=== PATIENT | female | born 1955 | race Caucasian/White ===

== ENCOUNTER 2017-12-16 10:58 | Emergency (ER) | payer MEDICARE, MEDICAID ==
[2017-12-16 11:50] VITALS: BP 138/74
--- NOTE | 2017-12-16 12:28 | RAD ---
Indication: Low back pain post fall 2 weeks ago. Difficulty walking. Comparison: No relevant prior exams available on the [facility] PACS for comparison. Technique: AP, lateral, and oblique views lumbar sacral spine. Report: Mild straightening and slight LEFT convex curve without spondylolisthesis at any level. Negative for fracture or spondylolysis. Advanced degenerative spondylosis with severe disc space narrowing at L3-L4 through L5-S1. Facet joint osteoarthritis is severe at L4-L5 and L5-S1. Unremarkable paraspinal soft tissue contours. Atherosclerotic calcification of the abdominal aorta. IMPRESSION: #. Negative for fracture or traumatic malalignment. #. Advanced degenerative spondylosis and facet joint osteoarthritis.
--- NOTE | 2017-12-16 12:46 | UC ---
Back Pain HPI - HPI Summary HPI Summary: lower back pain x 2 weeks s/p fall 2 weeks ago , has been having lower back pain since the fall , no radiation of the pain has been having frequent fall since , has difficulty walking , very unsteady on her feet , cannot control her gait , significant lower ext. weakness left more than right , has been using the walker no numbness of lower ext, no urinary sx - History of Current Complaint Chief Complaint: UCLowerExtremity Stated Complaint: SP FALL-LOWER BACK PAIN Time Seen by Provider: 12/16/17 11:41 Hx Obtained From: Patient Onset/Duration: Gradual Onset, Lasting Weeks - 2, Still Present Timing: Constant Severity Initially: Moderate Severity Currently: Severe Pain Intensity: 6 Back Pain: Is Discrete @ - lower back pain Character: Aching Aggravating Factor(s): Movement Alleviating Factor(s): Nothing Associated Signs And Symptoms: Positive: Weakness, Pain with Weight Bearing. Negative: Swelling, Redness, Bruising, Fever, Numbness, Tingling, Abdominal Pain , Flank Pain, Bladder Incontinence, Bowel Incontinence, Weight Loss - Allergies/Home Medications Allergies/Adverse Reactions: Allergies Allergy/AdvReac Type Severity Reaction Status Date / Time amoxicillin [From Augmentin] Allergy Vomiting Verified 12/16/17 11:41 aripiprazole [From Abilify] Allergy See Comment Verified 12/16/17 11:41 clavulanic acid Allergy Vomiting Verified 12/16/17 11:41 [From Augmentin] Home Medications: Home Medications Aspirin TAB* [Aspirin 325 MG TAB*] 325 mg PO DAILY 12/16/17 [History Confirmed 12/16/17] Cholecalciferol TAB* [Vitamin D TAB*] 1,000 unit PO DAILY 12/16/17 [History Confirmed 12/16/17] Clobetasol Propionate/Emoll [Clobetasol Emollient 0.05% Crm] 15 gm TP Q6HR PRN 12/16/17 [History Confirmed 12/16/17] FLUoxetine* [PROzac*] 20 mg PO DAILY 12/16/17 [History Confirmed 12/16/17] Fluticasone NASAL SPRAY 50MCG* [Flonase NASAL SPRAY 50MCG*] 2 spray BOTH NARES DAILY 12/16/17 [History Confirmed 12/16/17] Gabapentin CAP(*) [Neurontin 300 CAP(*)] 300 mg PO DAILY 12/16/17 [History Confirmed 12/16/17] HYDROcodone/ACETAMIN 5-325 MG* [[place] 5-325 TAB*] 2 tab PO Q4H PRN 12/16/17 [ History Confirmed 12/16/17] Hydroxychloroquine TAB* [Plaquenil TAB*] 200 mg PO BID 12/16/17 [History Confirmed 12/16/17] LORazepam TAB(*) [Ativan 1 MG TAB (*)] 1 mg PO BEDTIME PRN 12/16/17 [History Confirmed 12/16/17] Nut.tx.gluc.intoler,Lac-Fr,Soy [Glucerna 1.0 Al/Fiber] 1 liq PO DAILY 12/16/17 [History Confirmed 12/16/17] busPIRone TAB* [Buspar TAB*] 1 dose PO DAILY 12/16/17 [History Confirmed ] tiZANidine TAB* [Zanaflex TAB*] 4 mg PO DAILY 12/16/17 [History Confirmed ] PMH/Surg Hx/FS Hx/Imm Hx - Additional Past Medical History Additional PMH: Depression GERD fibromyalgia [ End ] Endocrine History: Diabetes Cardiovascular History: Hypertension - Surgical History Surgical History: Yes Surgery Procedure, Year, and Place: L TKA. tonsilectomy. ulnar nerve repair. appy. 2 c-sections - Family History Known Family History: Positive: Hypertension - Social History Alcohol Use: None Substance Use Type: Prescribed Smoking Status (MU): Heavy Every Day Tobacco Smoker Type: Cigarettes Amount Used/How Often: 1 1/2 PPD Review of Systems Constitutional: Negative Skin: Negative Eyes: Negative ENT: Negative Respiratory: Negative Cardiovascular: Negative Gastrointestinal: Negative Musculoskeletal: Arthralgia, Myalgia Neurological: Weakness Is Patient Immunocompromised?: No All Other Systems Reviewed And Are Negative: Yes Physical Exam Triage Information Reviewed: Yes Appearance: Well-Appearing, No Pain Distress, Other: - unsteady kareem Vital Signs: Initial Vital Signs Temp 98.1 F 12/16/17 11:42 Pulse 86 12/16/17 11:42 Resp 18 12/16/17 11:42 BP 138/74 12/16/17 11:42 Pulse Ox 100 12/16/17 11:42 Vital Signs Reviewed: Yes Eyes: Positive: Conjunctiva Clear ENT: Positive: Normal ENT inspection, Hearing grossly normal, Pharynx normal Neck exam: Normal Neck: Positive: Supple, Nontender Respiratory: Positive: Chest non-tender, Lungs clear, Normal breath sounds Cardiovascular: Positive: RRR, No Murmur, Pulses Normal Musculoskeletal: Positive: Strength Limited @ - lower ext left worse than right Skin Exam: Normal UC Physical Exam Vital Signs On Initial Exam: Initial Vitals Temp Pulse Resp BP Pulse Ox 98.1 F 86 18 138/74 100 12/16/17 11:42 12/16/17 11:42 12/16/17 11:42 12/16/17 11:42 12/16/17 11:42 - Neuro/Tendon Exam Neuro/Tendon: normal sensation Focal Weakness: RLE, LLE Gait: Abn Diagnostics - Laboratory Diagnostic Studies Completed/Ordered: IMPRESSION: #. Negative for fracture or traumatic malalignment. #. Advanced degenerative spondylosis and facet joint osteoarthritis. Back Pain Course/Dx - Differential Dx/Diagnosis Provider Diagnoses: lower back pain. unsteady gait. lower ext weakness Discharge - Sign-Out/Discharge Documenting (check all that apply): Patient Departure All imaging exams completed and their final reports reviewed: Yes - Discharge Plan Condition: Stable Disposition: HOME Prescriptions: predniSONE [Prednisone 20 MG TAB] 40 mg PO DAILY #10 tablet Patient Education Materials: Acute Low Back Pain (ED), Weakness (ED) Referrals: Pedro Asencio MD [Primary Care Provider] - As Soon As Possible Enrique Gomez MD [Medical Doctor] - As Soon As Possible Additional Instructions: s/p fall 2 weeks ago has been unsteady on her leg since with frequent falls, weakness of lower ext , has been using the walking since her fall 2 weeks ago - Billing Disposition and Condition Condition: STABLE Disposition: Home
== END 2017-12-16 12:45 | disposition home or self-care (01) ==
LOC: UCCORT 10:58
DX: M54.5 Low back pain (principal); R26.81 Unsteadiness on feet; R53.1 Weakness; F32.9 Major depressive disorder, single episode, unspecified; E11.9 Type 2 diabetes mellitus without complications; I10 Essential (primary) hypertension; Z88.0 Allergy status to penicillin; Z88.8 Allergy status to other drugs, medicaments and biological substances; Z88.1 Allergy status to other antibiotic agents; Z79.82 Long term (current) use of aspirin; M79.7 Fibromyalgia; Z79.899 Other long term (current) drug therapy; W19.XXXA Unspecified fall, initial encounter; Y92.9 Unspecified place or not applicable
CPT/HCPCS: 72110; 99202; G0463